=== PATIENT | female | born 1965 | race Caucasian/White ===

== ENCOUNTER → 2017-07-24 | Outpatient (CLI) | payer OTHER ==
[~2017-07-24] MED LIST: BENZ100A PO; HYDCHL12.5; HYDR1TAB94 PO; NAPR220 PO; Zofran Odt8 MG SL
[2017-07-25 11:50] LABS: Source ENDOCERV/CERV
== END ==
LOC: LAB 11:45
PROVIDERS: Nurse Practitioner
DX: Z01.419 Encounter for gynecological examination (general) (routine) without abnormal findings (principal)
CPT/HCPCS: G0145

== ENCOUNTER 2017-08-13 10:50 | Day surgery (SDC) | payer OTHER ==
[~2017-08-13] VITALS: Ht 175.3 cm; Wt 109.4 kg
== END 2017-08-13 14:00 | disposition home or self-care (01) ==
LOC: ORSCSDS 10:50
PROVIDERS: Surgery
PROC: 0DBM8ZX Excision of Descending Colon, Via Natural or Artificial Opening Endoscopic, Diagnostic (ICD-10-PCS; principal; 2017-08-13 13:30)
PROC: 0DBL8ZX Excision of Transverse Colon, Via Natural or Artificial Opening Endoscopic, Diagnostic (ICD-10-PCS; principal; 2017-08-13 13:30)
DX: Z12.11 Encounter for screening for malignant neoplasm of colon (principal); D12.3 Benign neoplasm of transverse colon; D12.4 Benign neoplasm of descending colon; K63.5 Polyp of colon; Z87.891 Personal history of nicotine dependence
CPT/HCPCS: 88305; J7120

== ENCOUNTER 2024-03-19 09:12 | Day surgery (SDC) | payer OTHER ==
[~2024-03-19] VITALS: Ht 175.3 cm; Wt 98.8 kg
[~2024-03-19 09:12] MED LIST changes: +DULO30 PO; +Lactated Ringer's 1,000 ML IV ONE; +ONDA4ODT MM
[2024-03-19] MEDS ORDERED: Lactated Ringer's 1,000 ML IV ONE (09:52)
[2024-03-19] MEDS ORDERED: Midazolam HCl 1MG / ML 2ML Vial ONE ×2 (09:58→11:06)
--- NOTE | 2024-03-19 11:29 | NUR ---
03/19/24 1129 MARIELA TATE TO PRE OP TO INJECT LOCAL TO RIGHT WRIST. ICE PACK REMOVED. PT MEDICATED PER ANESTHESIA WITH 2MG VERSED VIA IV. PULSE O2 MONITORING IN PLACE. PT TOLERATED WELL. VSS - REPORT GIVEN TO FLAVIO ALONZO POST INJECTION.
[2024-03-19 14:43] VITALS: BP 125/77
== END 2024-03-19 12:09 | disposition home or self-care (01) ==
LOC: ORSCSDS 09:12
PROVIDERS: Orthopaedic Surgery
PROC: 01N54ZZ Release Median Nerve, Percutaneous Endoscopic Approach (ICD-10-PCS; principal; 2024-03-19 11:00)
DX: G56.01 Carpal tunnel syndrome, right upper limb (principal); Z87.891 Personal history of nicotine dependence; Z79.899 Other long term (current) drug therapy
CPT/HCPCS: J2250; J7120